=== PATIENT | male | born 1995 | race African-American/Black ===

== ENCOUNTER 2017-04-18 19:46 | Emergency (ER) | payer SELFPAY ==
[~2017-04-18] VITALS: Ht 182.9 cm; Wt 74.8 kg
[2017-04-18 20:33] LABS: URINE SOURCE CLEAN CATCH
[2017-04-18 20:45] LABS: URINE APPEARANCE CLEAR; URINE BILIRUBIN NEG (NEG); URINE BLOOD NEG (NEG); URINE COLOR YELLOW; URINE GLUCOSE NEG (NEG); URINE KETONE NEG (NEG); URINE LEUKOCYTE ESTERASE TRACE (NEG); URINE NITRATE NEG (NEG); URINE PH 6.5 (5-8); URINE PROTEIN NEG (NEG); URINE SPECIFIC GRAVITY 1.005 (1.003-1.035); URINE UROBILINOGEN 0.2 MG/DL (NEG)
[2017-04-18 20:48] LABS: URBCS1 AUWI 0-2 /[HPF] (0-2); URINE BACTERIA AUWI NEG (NEGATIVE); URINE SQUAMOUS EPITHELIAL CELL NONE SEEN /[HPF]; UWBCS1 AUWI 0-2 (0-5)
[2017-04-18 20:50] LABS: CULTURE INDICATED? NO
[2017-04-22 18:07] LABS: CHLAMYDIA TRACH Not Detected (Not Detected); N GONOR Not Detected (Not Detected)
== END 2017-04-18 21:34 | disposition home or self-care (01) ==
LOC: CFTX 19:46 → CED 19:46 → CFTX 20:17
PROVIDERS: Nurse Practitioner Family
DX: N39.0 Urinary tract infection, site not specified (principal); J45.909 Unspecified asthma, uncomplicated
CPT/HCPCS: 81003; 87491; 87591; 99283